=== PATIENT | male | born 1945 | race African-American/Black ===

== ENCOUNTER 2018-01-21 09:00 | Inpatient (IN) | payer BC, MEDICAID ==
[2018-01-31] MEDS ORDERED: FAMOTIDINE 20MG TABLET PO ONE (06:00)
[2018-01-31] MEDS ORDERED: ACETAMINOPHEN 1,000 MG/100 ML BTL IV ONE (06:00)
[2018-01-31] MEDS ORDERED: CELECOXIB 100 MG CAPSULE PO ONE (06:00)
[2018-01-31] MEDS ORDERED: VANCOMYCIN HCL 1,000 MG in DEXTROSE 5 % IN WATER 250 ML IVPB ONE ×2 (06:00)
[2018-01-31] MEDS ORDERED: MECLIZINE 25 MG TABLET PO ONE (06:00)
[2018-01-31] MEDS ORDERED: CEFAZOLIN 2 Gram 2 GM/50 ML BAG IVPB ONE (06:00)
[2018-01-31] MEDS ORDERED: METOCLOPRAMIDE 10 MG TABLET PO ONE (06:00)
[2018-01-31] MEDS ORDERED: TRAMADOL HCL 50 MG TABLET PO PRN ×2 (08:22)
[2018-01-31] MEDS ORDERED: HYDROMORPHONE HCL 2 MG/ML VIAL IM PRN (08:22)
[2018-01-31] MEDS ORDERED: ACETAMINOPHEN 325 MG TAB PO PRN (08:22)
[2018-01-31] MEDS ORDERED: ONDANSETRON HCL IV 4 MG/2 ML VIAL IVP PRN (08:22)
[2018-01-31] MEDS ORDERED: HYDROCODONE/APAP 5/325MG TABLET PO PRN ×2 (08:22)
[2018-01-31] MEDS ORDERED: ZOLPIDEM TARTRATE 5 MG TABLET PO PRN (08:22)
[2018-01-31] MEDS ORDERED: MAGNESIUM HYDROXIDE 30 ML UDC PO PRN (08:22)
[2018-01-31] MEDS ORDERED: BISACODYL 10 MG SUPP RC PRN (08:22)
[2018-01-31] MEDS ORDERED: ACETAMINOPHEN W/ CODEINE 300MG/30MG TABLET PO PRN ×2 (08:22)
[2018-01-31] MEDS ORDERED: NALOXONE 0.4 MG/1 ML VIAL IVP PRN (08:22)
[2018-01-31] MEDS ORDERED: KETOROLAC 30 MG/ML VIAL IVP PRN ×2 (08:22)
[2018-01-31] MEDS ORDERED: PROMETHAZINE HCL 12.5 MG in 0.9 % SODIUM CHLORIDE 100ML 50 ML IVPB PRN (08:22)
[2018-01-31] MEDS ORDERED: METOCLOPRAMIDE HCL 10 MG/2 ML VIAL IVP PRN (08:22)
[2018-01-31] MEDS ORDERED: ACETAMINOPHEN W/ CODEINE 300MG/60MG TABLET PO PRN (08:22)
[2018-01-31] MEDS ORDERED: AL HYDROX/MAG HYDROX 30ML UD PO PRN (08:22)
[2018-01-31] MEDS ORDERED: HYDROCODONE/APAP 7.5/325MG TABLET PO PRN ×2 (08:22)
[2018-01-31] MEDS ORDERED: DIPHENHYDRAMINE HCL 25 MG CAPSULE PO PRN (08:22)
[2018-01-31] MEDS: DOCUSATE SODIUM 100 MG CAPSULE PO SCH ×2 (11:54→21:09)
[2018-01-31] MEDS: FERROUS SULFATE 325 MG TAB PO SCH ×2 (11:54→21:09)
[2018-01-31] MEDS ORDERED: DEXTROSE 5 % AND 0.9 % NACL 1,000 ML IV PRN (13:00)
[2018-01-31] MEDS ORDERED: PNEUM 23-VAL ADULT IM ONE (13:27)
[2018-01-31] MEDS ORDERED: LISINOPRIL 20 MG TABLET PO SCH (14:00)
[2018-01-31] MEDS ORDERED: TRANEXAMIC ACID 1,000 MG/10 ML ML IV ONE ×2 (16:10)
[2018-01-31] MEDS ORDERED: VANCOMYCIN HCL 1 GM VIAL IVPB ONE ×2 (16:10)
[2018-01-31] MEDS ORDERED: BUPIVACAINE LIPOSOME 266MG/20ML VIAL IV ONE (16:10)
[2018-01-31] MEDS ORDERED: BUPIVACAINE 0.5% W/EPI MPF 30 ML VIAL IVP ONE ×2 (16:10)
--- NOTE | 2018-01-31 16:38 | Rehab Evaluation ---
Patient Information - Patient Information Diagnosis: L hip OA Ordered Treatment: PT Evaluate and Treat Status: Initial Evaluation Surgery: Yes (L THR) Date of Surgery: 01/31/18 Past Medical/Surgical Hx: PAST MEDICAL/SURGICAL HISTORY Past Surgical History fluid drained from lungs 2009 CTR TURP PMH - Respiratory Hx Respiratory Disorders Yes Hx Bronchitis Yes Hx Chronic Obstructive Yes: uses inhalers new additions recently. no Pulmonary Disease (COPD) recent hospitalizations Hx Dyspnea Yes Hx Pneumonia Yes Hx Sleep Apnea Yes Hx of CPAP Yes Hx of SOB Yes PMH - Cardiovascular Hx Cardiovascular Disorders Yes Hx Hypertension Yes: controlled with meds Exercise Tolerance Fair Comment: pt has abdominal aortic aneurysm seeing Dr Mcdowell PMH - Neuro Hx Neurological Disorders Yes Hx Dizziness Yes: when looking down Hx Headaches Yes: occassionally Comment: forgetful. Pt fell 2 months ago injury to head neg CT scan PMH - GI Hx Gastrointestinal Disorders Yes Hx Gastroesophageal Reflux Yes Hx Nausea/Vomiting Yes: vomits if he doesnt take Reglan PMH - Hx Genitourinary Disorders Yes Hx Prostate Problems Yes: BPH Hx Urinary Tract Infection Yes: pt had recent UTI PMH - Endocrine Hx Endocrine Disorders No PMH - Musculoskeletal Hx Musculoskeletal Disorders Yes Hx Arthritis Yes: RA and OA PMH - Psych Hx Psychiatric Problems Yes Hx Anxiety Yes Hx Depression Yes PMH - Hematology/Oncology Hx Hematology/Oncology No Disorders Premorbid Status: Detail (The patient was independent with all mobility prior to surgery.) Social History: Detail (The patient lives with spouse in a mobile home with 4 stairs at the enterance and two railings (one within reach). The patient's bathroom is equipped with a walk in shower with a shower bench and a standard toilet with a commode seat with handles. No grab bars are present in the bathroom. The patient has a front wheeled walker.) Precautions: [place], Fall, Other (THR precautions) - Time With Patient Total Time Spent With Patient (Min): 30 Treatment Procedures: Detail (PT evaluation and gait training.) Subjective Information - Subjective Information Per Patient (The patient had complaints of L hip pain level 7 at the highest using 0 to 10 pain scale.) Objective Data - Mental Status Patient Orientation: Oriented x3 - Visual Perception Appears within normal limits for therapeutic activities - ROM Not within normal limits (The patient's L hip is limited within THR precautions. All other LE AROM is WNL) - Strength/Tone Not within normal limits (The patient's L hip strength was not tested secondary to s/p surgery, however the patient's strength was functional. The patient's R LE strength was WFL.) - Bed Mobility Needs Assist (The patient required minimal PA with supine to sit. The patient was independent with scooting.) - Transfers Independent (The patient was independent with sit to and from stand transfer.) - Balance Balance Sitting: Good Balance Standing: Good - Sensation Deficit - Gait Detail (The patient ambulated with front wheeled walker WBAT on the L LE a distance of 25 feet x 1 with supervision for safety. The patient exhibited shortnesss of breath with ambulation.) Therapy Assessment - Therapy Assessment Detail (The patient was independent with transfers and ambulation short distances. The patient required minimal assist with bed mobility. Feel the patient will progress well with mobility.) Patient Education - Patient Education Teaching Topic: Precautions (The patient required maximal verbal cues to recall THR precautions. The patient appropriately followed precautions with mobility.) Response: Reinforcement Needed Teaching Method: Discussion Teaching Recipient: Patient Barriers To Learning: Age Related Problem List - Problem List Physical Therapy Problem List: Detail (1) Decreased L LE strength 2) Assistance with bed mobility 3) Nonambulatory on stairs) Goals - Goals Physical Therapy Goals: 1) The patient will be independent with HEP of THR and exhibit good understanding of THR precautions. 2) The patient will ambulate on stairs using proper technique with supervision for safety. 3) The patient will be independent with bed mobility. 4) The patient will ambulate household distances with appropriate assistive device independently WBAT on the L LE. Prognosis - Prognosis Good Plan - Plan Physical Therapy Plan: PT 1-2 sessions for gait training on levels and stairs and instruction in THR precautions.
[2018-01-31] MEDS: BUSPIRONE 5 MG TABLET PO SCH (17:18)
[2018-01-31] MEDS: PANTOPRAZOLE SODIUM 40 MG TABLET PO SCH (17:18)
[2018-01-31] MEDS: METOCLOPRAMIDE 10 MG TABLET PO SCH (17:18)
[2018-01-31] MEDS: CYCLOBENZAPRINE 10MG TABLET PO SCH (17:19)
[2018-01-31] MEDS ORDERED: ATORVASTATIN 20 MG TABLET PO SCH (17:30)
[2018-01-31] MEDS ORDERED: ATENOLOL 25 MG TABLET PO SCH (17:30)
[2018-01-31] MEDS ORDERED: TAMSULOSIN HCL 0.4 MG CAP.ER.24H PO SCH (17:30)
[2018-01-31] MEDS ORDERED: DULERA INH SCH (18:30)
[2018-01-31] MEDS: HYDROMORPHONE HCL 2 MG/ML VIAL IM PRN ×2 (18:31→23:52)
[2018-01-31] MEDS: PATIENT OWN MED: PROAIR HFA INH PRN (19:36)
--- NOTE | 2018-01-31 20:46 | Operative Note ---
DATE OF SURGERY: 01/31/2018 PREOPERATIVE DIAGNOSIS: Left hip avascular necrosis, stage 3. POSTOPERATIVE DIAGNOSIS: Left hip avascular necrosis, stage 3. OPERATION: Left total hip arthroplasty, cemented. SURGEON: Rizwan Ruiz M.D. ANESTHESIA: Spinal. CONTRACT ENGINEER. COMPLICATIONS: None. BLOOD LOSS: 200 mL. OPERATIVE FINDINGS: Collapse of the superior femoral head. INDICATIONS FOR OPERATION: This is an 72-year-old male, who was seen in consult in the hospital with bilateral hip pain. He had an MRI, which showed avascular necrosis stage 3. He has had persistent pain in both hips with limping and is scheduled for hip replacement. I explained the risks and benefits thoroughly in detail for the diagnosis and procedures including but not limited to; infection , nerve injury, vessel injury, persistent pain, persistent numbness and tingling in his hip, periprosthetic fracture, need for resection arthroplasty should the components become infected or loosened, nerve injury, vessel injury, blood clot, limb length discrepancy, need for need for anticoagulation to prevent blood clots and the risks associated with these medications and all of his questions were answered. Rehab and course were outlined and he agreed to proceed. PROCEDURE: The patient was brought to the O.R. and placed in the right lateral decubitus position and his left hip and lower extremity were prepped and draped in the usual sterile fashion, The left hip was prepped again with ChloraPrep after it was draped. Intraoperative time-out was performed. Next, a posterior approach was marked on the hip. We infiltrated with 0.5% Marcaine with Epinephrine. The skin and subcutaneous tissues were dissected down to the gluteal fascia. The gluteal fascia was split longitudinally and the subgluteal plane was bluntly dissected. The gluteal tendon was partially released and a self-retainer was brought in. I identified the sciatic nerve and carefully protected it at all times. Next, we released the short external rotators and the capsule. We dislocated the femoral head. We resected the femoral head with a saw about 1.5 cm above the lesser trochanter. The femoral head was collapsed superiorly. He had a large crater on the weightbearing portion. Next, I inserted the box osteotome and then started reaming in 1 mm increments up to a size 14. We stopped there. We broached a 13 and calcar planed, then a 14 broach and it fit nicely. Next, attention was turned to the acetabulum. We released the inferior capsule and placed a retractor and retracted the proximal femur out of the way and then a inferior acetabular retractor. We removed the labrum and capsule around the periphery. We started reaming in 1 mm increments in 45 degrees of inclination and 20 degrees of anteversion until we reamed up to a size 53 mm, which had a good peripheral and central fit now. We then trialed a 54 shell and it fit nicely and again in the orientation. We changed gloves, irrigated copiously. We impacted down the real three-hole acetabular component using the helicopter guide, again in 45 degrees of inclination and 20 degrees of anteversion. We drilled the posterior central and superior quadrant screw hole and inserted a 40 mm screw and had good purchase. We placed the trial liner and then inserted the trial stem and re-reduced the hip. The best combination for range of motion and stability was with a high- offset 32 +0 mm femoral head component. This allowed for symmetric leg lengths, flexion to 90 and internal rotation to 80 before the hip dislocated, stability with extension in external rotation, good abductor tensioning. Next, we removed all trial components. We mixed cement. We placed the centrally threaded screw cap and the two other screw caps and the acetabular shell. We impacted down the 35 degree hooded acetabular liner with the medina in the posterior superior quadrant. We placed the cement restrictor in the femoral canal. Irrigated copiously again. Suction catheter and with 3rd generation cement technique, injected the antibiotic cement. We then inserted the femoral stem until the collar was flush with the medial calcar, again in 15 degrees of anteversion and held it there until the cement hardened. We cleaned and dried the trunnion. We impacted down the real femoral head component. We re-reduced the hip. Final range of motion revealed the same. We injected deep to superficial from the short external rotators working out superficially to the periosteum to the gluteal muscle and fascia and subcutaneous with our 0.5% Marcaine with Epinephrine, 2 gm tranexamic acid, and Exparel mixture. We repaired the gluteal fascia split with running #2 Quill suture. We repaired the skin using #2-0 Vicryl securely. A sterile dressing was applied. This will be converted to a BIANCA dressing prior to discharge. The patient tolerated the procedures well. No intraoperative complications. All sponge, needle, and blade counts were correct. Recovery stable, neurovascularly intact. He will be discharged to the Floor. He will be discharged home tomorrow with Home Therapy Nurse. He will follow-up in two weeks. cc: Primary Care DoctorJohn. JOB NUMBER: [id number] MTDD
[2018-01-31] MEDS: VANCOMYCIN HCL 1,000 MG in DEXTROSE 5 % IN WATER 250 ML IVPB SCH ×2 (21:09)
[2018-01-31] MEDS: ACETAMINOPHEN W/ CODEINE 300MG/60MG TABLET PO PRN (21:12)
[2018-01-31] MEDS ORDERED: LATANOPROST OPTH OPTH SCH (22:00)
[2018-02-01] MEDS: ACETAMINOPHEN W/ CODEINE 300MG/60MG TABLET PO PRN (02:09)
[2018-02-01] MEDS: PATIENT OWN MED: PROAIR HFA INH PRN ×3 (02:23→10:41)
[2018-02-01] MEDS: HYDROMORPHONE HCL 2 MG/ML VIAL IM PRN (04:35)
--- NOTE | 2018-02-01 05:01 | RADIOLOGY REPORT ---
EXAM: LEFT HIP HISTORY: POSTOP LEFT HIP ARTHROPLASTY. TECHNIQUE: A single portable frontal view of the left hip was obtained. Comparison: None. FINDINGS: Visible left hip arthroplasty hardware elements appear intact. Unremarkable single view alignment of femoral and acetabular components. The acetabular screw appears to extend approximately 14 mm beyond the medial acetabular cortex, of uncertain significance. Adjacent soft tissue lucencies compatible with recent surgery. No acute fracture seen. IMPRESSION: ABOVE. JOB NUMBER: [id number] MTDD
[2018-02-01] MEDS: PANTOPRAZOLE SODIUM 40 MG TABLET PO SCH (07:39)
[2018-02-01] MEDS: METOCLOPRAMIDE 10 MG TABLET PO SCH (07:39)
[2018-02-01] MEDS: BUSPIRONE 5 MG TABLET PO SCH (07:40)
[2018-02-01] MEDS ORDERED: LISINOPRIL 20 MG TABLET PO SCH (08:00)
[2018-02-01] MEDS ORDERED: BUPROPION HCL 150 MG TAB.SR.12H PO SCH (08:00)
[2018-02-01] MEDS ORDERED: TRIAMTERENE 37.5/HCTZ 25 CAPSULE PO SCH (08:00)
[2018-02-01] MEDS: VANCOMYCIN HCL 1,000 MG in DEXTROSE 5 % IN WATER 250 ML IVPB SCH ×2 (08:07)
[2018-02-01] MEDS: CYCLOBENZAPRINE 10MG TABLET PO SCH (08:11)
--- NOTE | 2018-02-01 08:25 | Rehab Evaluation ---
Patient Information - Patient Information Diagnosis: L hip OA Ordered Treatment: OT Evaluate and Treat Status: Initial Evaluation Surgery: Yes (L THR) Date of Surgery: 01/31/18 Past Medical/Surgical Hx: PAST MEDICAL/SURGICAL HISTORY Past Surgical History fluid drained from lungs 2009 CTR TURP PMH - Respiratory Hx Respiratory Disorders Yes Hx Bronchitis Yes Hx Chronic Obstructive Yes: uses inhalers new additions recently. no Pulmonary Disease (COPD) recent hospitalizations Hx Dyspnea Yes Hx Pneumonia Yes Hx Sleep Apnea Yes Hx of CPAP Yes Hx of SOB Yes PMH - Cardiovascular Hx Cardiovascular Disorders Yes Hx Hypertension Yes: controlled with meds Exercise Tolerance Fair Comment: pt has abdominal aortic aneurysm seeing Dr Mcdowell PMH - Neuro Hx Neurological Disorders Yes Hx Dizziness Yes: when looking down Hx Headaches Yes: occassionally Comment: forgetful. Pt fell 2 months ago injury to head neg CT scan PMH - GI Hx Gastrointestinal Disorders Yes Hx Gastroesophageal Reflux Yes Hx Nausea/Vomiting Yes: vomits if he doesnt take Reglan PMH - Hx Genitourinary Disorders Yes Hx Prostate Problems Yes: BPH Hx Urinary Tract Infection Yes: pt had recent UTI PMH - Endocrine Hx Endocrine Disorders No PMH - Musculoskeletal Hx Musculoskeletal Disorders Yes Hx Arthritis Yes: RA and OA PMH - Psych Hx Psychiatric Problems Yes Hx Anxiety Yes Hx Depression Yes PMH - Hematology/Oncology Hx Hematology/Oncology No Disorders Premorbid Status: Detail (The patient was independent with all mobility prior to surgery. Pt's spouse is responsible for all home mgmt, meal prep and laundry.) Social History: Detail (The patient lives with spouse and 4 children (ages 14, 16 and 18) in a mobile home with 4 stairs at the entrance and two railings. The patient's bathroom is equipped with a walk in shower with a shower bench and a standard toilet with a riser. No grab bars are present in the bathroom. The patient has a front wheeled walker, black leather buffer, sock aid and shoe horn.) Precautions: [place], Fall, Other (THR precautions) Subjective Information - Subjective Information Per Patient, Other (Per spouse) Objective Data - Pain Pain Present: Yes (07/15) - Mental Status Patient Orientation: Oriented x3 - Visual Perception Appears within normal limits for therapeutic activities - ROM Not within normal limits ([place] shoulder motion impaired although this is premorbid per . [place] elbow, hand AROM WNL.) - Strength/Tone Not within normal limits ([place] shoulder strength4/5, davonte elbow and hand strength 4+/5) - Coordination Appears within normal limits for therapeutic activities - Bed Mobility Independent (Ind with supine to sit at EOB with use of hospital bed rails.) - Transfers Independent (Ind with sit to stand from EOB with walker.) - Balance Balance Sitting: Good Balance Standing: Fair - Sensation Intact - Gait Detail (Pt ambulated several steps to chair with 2 wheeled walker and SBA.) - ADL's/IADL's Detail (Pt and educated re: use of black leather buffer, sock aid and long shoe horn for modified LE dressing while maintaining hip precautions. Pt able to doff slipper socks and don boxers, sweatpants and socks with verbal cues, he required assist for slippers due to fatigue and slippers were tight fitting. reports he will have assist as needed at home. Reviewed kitchen and shower safety and modifications, and pt verbalize understanding.) Therapy Assessment - Therapy Assessment Detail (Pt/ educated and demo learning of modified LE dressing techniques and use of adaptive equipment.) Problem List - Problem List Physical Therapy Problem List: Detail (1) Decreased L LE strength 2) Assistance with bed mobility 3) Nonambulatory on stairs) Occupational Therapy Problem List: Detail (No current IP OT problems identified. ) Goals - Goals Physical Therapy Goals: 1) The patient will be independent with HEP of THR and exhibit good understanding of THR precautions. 2) The patient will ambulate on stairs using proper technique with supervision for safety. 3) The patient will be independent with bed mobility. 4) The patient will ambulate household distances with appropriate assistive device independently WBAT on the L LE. Occupational Therapy Goals: No current IP OT goals identified. Prognosis - Prognosis Good Plan - Plan Physical Therapy Plan: PT 1-2 sessions for gait training on levels and stairs and instruction in THR precautions. Occupational Therapy Plan: No further IP OT recommended. Thank you for this referral.
[2018-02-01] MEDS ORDERED: PROPOFOL 10 MG/ML VIAL IV ONE (08:34)
[2018-02-01] MEDS ORDERED: EPHEDRINE SULFATE 50 MG/ML ML IV ONE (08:34)
[2018-02-01] MEDS ORDERED: LIDOCAINE 2% MDV (20MG/ML) 20ML VIAL IV ONE (08:34)
[2018-02-01] MEDS ORDERED: VASOPRESSIN 20 U/ML VIAL IM ONE (08:34)
[2018-02-01] MEDS ORDERED: KETAMINE HCL 100MG/1ML VIAL INJ ONE (08:34)
[2018-02-01] MEDS ORDERED: MIDAZOLAM HCL 2MG/2ML VIAL IV ONE (08:34)
[2018-02-01] MEDS ORDERED: RIVAROXABAN 10 MG TABLET PO SCH (10:00)
[2018-02-01] MEDS ORDERED: STIOLTO RESPIMAT INH SCH (10:00)
[2018-02-01] MEDS ORDERED: CELECOXIB 100 MG CAPSULE PO SCH (10:00)
[2018-02-01] MEDS: DOCUSATE SODIUM 100 MG CAPSULE PO SCH (10:01)
[2018-02-01] MEDS: FERROUS SULFATE 325 MG TAB PO SCH (10:03)
--- NOTE | 2018-02-01 11:20 | Physical Therapy Tx Note ---
Physical Therapy Tx Note - Treatment Note Tolerated: Good Total Time Spent With Patient: 30 Physical Therapy Tx Note: Detail (The patient was in bed when PT arrived. The patient was independent with supine to sit transfer. The patient ambulated with front wheeled walker a distance of 54 feet x 1 WBAT on the L LE independently. The patient ambulated on 3 steps with use of folded walker and railing using proper technique with CG/supervision for safety. The patient completed THR exercises including: ankle pumps, quad sets, gluteal sets, hamstring sets, hip abduction and heel slides. The patient's THR precautions were reviewed. The patient continues to have shortness of breath with all activity and is independent with pursed lip breathing techniques. The patient's was instructed in proper gaurding of the patient on stairs. The patient has met all inpatient PT goals and is discharged from inpatient PT.) Physical Therapy Problem List: Detail (1) Decreased L LE strength 2) Assistance with bed mobility 3) Nonambulatory on stairs) Physical Therapy Goals: GOALS MET: 1) The patient will be independent with HEP of THR and exhibit good understanding of THR precautions. 2) The patient will ambulate on stairs using proper technique with supervision for safety. 3) The patient will be independent with bed mobility. 4) The patient will ambulate household distances with appropriate assistive device independently WBAT on the L LE. Physical Therapy Plan: The patient has met all inpatient PT goals and is discharged from inpatient PT. The patient is to receive Home PT.
== END 2018-02-01 14:00 | disposition home or self-care (01) | DRG 470 ==
LOC: MEDSURG 01-31 08:09
PROVIDERS: ADMIT Orthopaedic Surgery; ATTEND Orthopaedic Surgery
PROC: 0SRB069 Replacement of Left Hip Joint with Oxidized Zirconium on Polyethylene Synthetic Substitute, Cemented, Open Approach (ICD-10-PCS; principal; 2018-01-31 10:00)
DX: M87.852 Other osteonecrosis, left femur (principal); I10 Essential (primary) hypertension; J44.9 Chronic obstructive pulmonary disease, unspecified; E78.00 Pure hypercholesterolemia, unspecified; N40.0 Benign prostatic hyperplasia without lower urinary tract symptoms; H40.9 Unspecified glaucoma; G47.33 Obstructive sleep apnea (adult) (pediatric); I71.4 Abdominal aortic aneurysm, without rupture
CPT/HCPCS: 94640; 94760; 94761; 97110; C1776; J3490; J7042; J7060

== ENCOUNTER 2018-05-26 13:00 | Inpatient (IN) | payer BC, MEDICAID ==
[2018-05-30] MEDS ORDERED: CELECOXIB 100 MG CAPSULE PO ONE (06:00)
[2018-05-30] MEDS ORDERED: ACETAMINOPHEN 1,000 MG/100 ML BTL IV ONE (06:00)
[2018-05-30] MEDS ORDERED: CEFAZOLIN 2 Gram 2 GM/50 ML BAG IVPB ONE (06:00)
[2018-05-30] MEDS ORDERED: MECLIZINE 25 MG TABLET PO ONE (06:00)
[2018-05-30] MEDS ORDERED: VANCOMYCIN HCL 1,000 MG in DEXTROSE 5 % IN WATER 250 ML IVPB ONE ×2 (06:00)
[2018-05-30] MEDS ORDERED: FAMOTIDINE 20MG TABLET PO ONE (06:00)
[2018-05-30 08:14] LABS: ABO GROUP A; ANTIBODY SCREEN NEGATIVE (NEGATIVE); RH TYPE POSITIVE
[2018-05-30] MEDS ORDERED: KETOROLAC 30 MG/ML VIAL IVP PRN ×2 (08:19)
[2018-05-30] MEDS ORDERED: PROMETHAZINE HCL 12.5 MG in 0.9 % SODIUM CHLORIDE 100ML 50 ML IVPB PRN (08:19)
[2018-05-30] MEDS ORDERED: METOCLOPRAMIDE HCL 10 MG/2 ML VIAL IVP PRN (08:19)
[2018-05-30] MEDS ORDERED: BISACODYL 10 MG SUPP RC PRN (08:19)
[2018-05-30] MEDS ORDERED: DIPHENHYDRAMINE HCL 25 MG CAPSULE PO PRN (08:19)
[2018-05-30] MEDS ORDERED: HYDROCODONE/APAP 7.5/325MG TABLET PO PRN (08:19)
[2018-05-30] MEDS ORDERED: TRAMADOL HCL 50 MG TABLET PO PRN ×2 (08:19)
[2018-05-30] MEDS ORDERED: ACETAMINOPHEN W/ CODEINE 300MG/60MG TABLET PO PRN ×2 (08:19)
[2018-05-30] MEDS ORDERED: AL HYDROX/MAG HYDROX 30ML UD PO PRN (08:19)
[2018-05-30] MEDS ORDERED: ZOLPIDEM TARTRATE 5 MG TABLET PO PRN (08:19)
[2018-05-30] MEDS ORDERED: HYDROCODONE/APAP 5/325MG TABLET PO PRN ×2 (08:19)
[2018-05-30] MEDS ORDERED: HYDROMORPHONE HCL 2 MG/ML VIAL IM PRN ×2 (08:19)
[2018-05-30] MEDS ORDERED: NALOXONE 0.4 MG/1 ML VIAL IVP PRN (08:19)
[2018-05-30] MEDS ORDERED: ACETAMINOPHEN 325 MG TAB PO PRN (08:19)
[2018-05-30] MEDS ORDERED: MAGNESIUM HYDROXIDE 30 ML UDC PO PRN (08:19)
[2018-05-30] MEDS ORDERED: ACETAMINOPHEN W/ CODEINE 300MG/30MG TABLET PO PRN ×2 (08:19)
[2018-05-30] MEDS ORDERED: ONDANSETRON HCL IV 4 MG/2 ML VIAL IVP PRN (08:19)
[2018-05-30] MEDS ORDERED: BUPIVACAINE LIPOSOME 266MG/20ML VIAL SQ ONE (09:01)
[2018-05-30] MEDS ORDERED: BUPIVACAINE 0.5% W/EPI MPF 30 ML VIAL SQ ONE (09:01)
[2018-05-30] MEDS ORDERED: DEXTROSE 5 % AND 0.9 % NACL 1,000 ML IV PRN (10:30)
[2018-05-30] MEDS ORDERED: RINGERS SOLUTION,LACTATED 50 ML IV ONE (10:34)
[2018-05-30] MEDS ORDERED: ALBUTEROL HFA 8 GM INHALER INH PRN (11:03)
[2018-05-30] MEDS ORDERED: STIOLTO RESPIMAT INH SCH (11:30)
[2018-05-30] MEDS: BUPROPION HCL 150 MG TAB.SR.12H PO SCH (12:30)
[2018-05-30] MEDS: BUSPIRONE 5 MG TABLET PO SCH ×2 (12:30→21:24)
[2018-05-30] MEDS: PANTOPRAZOLE SODIUM 40 MG TABLET PO SCH ×2 (12:30→21:24)
[2018-05-30] MEDS: CYCLOBENZAPRINE 10MG TABLET PO SCH ×2 (12:30→21:24)
[2018-05-30] MEDS ORDERED: PHENYLEPHRINE HCL 10 MG/ML VIAL IVP ONE (14:00)
[2018-05-30] MEDS ORDERED: KETAMINE HCL 100MG/1ML VIAL INJ ONE (14:00)
[2018-05-30] MEDS ORDERED: EPHEDRINE SULFATE 50 MG/ML ML IV ONE (14:00)
[2018-05-30] MEDS ORDERED: PROPOFOL 10 MG/ML VIAL IV ONE (14:00)
[2018-05-30] MEDS ORDERED: VASOPRESSIN 20 U/ML VIAL IM ONE (14:00)
[2018-05-30] MEDS ORDERED: MIDAZOLAM HCL 2MG/2ML VIAL IV ONE (14:00)
[2018-05-30] MEDS ORDERED: TRANEXAMIC ACID 1,000 MG/10 ML ML IV ONE (14:00)
[2018-05-30] MEDS ORDERED: LIDOCAINE 2% MDV (20MG/ML) 20ML VIAL IV ONE (14:00)
--- NOTE | 2018-05-30 15:26 | Rehab Evaluation ---
Patient Information - Patient Information Diagnosis: R hip OA Ordered Treatment: PT Evaluate and Treat Status: Initial Evaluation Surgery: Yes (L THR) Date of Surgery: 05/30/18 Past Medical/Surgical Hx: PAST MEDICAL/SURGICAL HISTORY Surgery to Affected Area? No Recent Surgery? Past Surgical History LTHA 01-31-18 fluid drained from lungs 2009 CTR TURP PMH - Respiratory Hx Respiratory Disorders Yes Hx Bronchitis Yes Hx Chronic Obstructive Yes: uses inhalers new additions recently. no Pulmonary Disease (COPD) recent hospitalizations Hx Dyspnea Yes Hx Pneumonia Yes Hx Sleep Apnea Yes Hx of CPAP Yes Hx of SOB Yes PMH - Cardiovascular Hx Cardiovascular Disorders Yes Hx Hypertension Yes: controlled with meds Exercise Tolerance Fair Comment: pt has abdominal aortic aneurysm seeing Dr Mcdowell PMH - Neuro Hx Neurological Disorders Yes Hx Dizziness Yes: when looking down Hx Headaches Yes: occassionally Comment: forgetful. Pt fell 6 months ago injury to head neg CT scan PMH - GI Hx Gastrointestinal Disorders Yes Hx Gastroesophageal Reflux Yes Hx Nausea/Vomiting Yes: vomits if he doesnt take Reglan PMH - Hx Genitourinary Disorders Yes Hx Prostate Problems Yes: BPH Hx Urinary Tract Infection Yes: pt had recent UTI PMH - Endocrine Hx Endocrine Disorders No PMH - Musculoskeletal Hx Musculoskeletal Disorders Yes Hx Arthritis Yes: RA and OA PMH - Psych Hx Psychiatric Problems Yes Hx Anxiety Yes Hx Depression Yes PMH - Hematology/Oncology Hx Hematology/Oncology No Disorders Premorbid Status: Detail (Prior to surgery the patient was independent with all mobility.) Social History: Detail (The patient lives with spouse in a mobile home with 4-5 steps at the enterance and two railings. The bathroom equipped with a walk in shower with a shower bench, an elevated toilet (riser seat). No grab bars are present in bathroom. The paitent has a two wheeled walker, 5 point cane, extended shoe horn, [employer] head and sock aide.) Precautions: [place], Fall, Other (R THR precautions) - Time With Patient Total Time Spent With Patient (Min): 30 Treatment Procedures: Detail (Initial evaluation) Subjective Information - Subjective Information Per Patient (The patient had no complaints of pain. The patient did complain of lightheadness with both sitting and standing. The patient was drowsy and required cueing to keep his eyes open when standing.) Objective Data - Mental Status Patient Orientation: Oriented x3 - Visual Perception Appears within normal limits for therapeutic activities - ROM Not within normal limits (The patient's R hip was within THR precautions. All other LE AROM was WNL.) - Strength/Tone Not within normal limits (The patient's R LE strength was not tested s/p surgery. Functionally weakness was present in hip musculature with patient requiring assist to move R LE into hip abduction for supine to sit transfer. The patient's L LE strength was 4+ to 5/5.) - Bed Mobility Needs Assist (The patient required minimal PA with supine to and from sit transfer to lift LE's. The patient was independent with scooting up in bed.) - Transfers Independent (The patient was independent with sit to and from stand tranfer. Supervision for safety with commode transfer plus standby assist of 1 for safety.) - Balance Balance Sitting: Good Balance Standing: Good - Gait Detail (The patient did not ambulate due to lightheadness with standing but did take two to three steps to and from commode to bed transfer with use of 2 wheeled walker.) Therapy Assessment - Therapy Assessment Detail (The patient was lightheaded with standing and required minimal assistance with bed mobility. Feel the patient will progress well once the symptoms of light headedness subside.) Patient Education - Patient Education Teaching Topic: Precautions (THR precautions were reviewed with patient.) Response: Return Demonstration, Reinforcement Needed Teaching Method: Discussion, Handout Teaching Recipient: Patient Barriers To Learning: Age Related Problem List - Problem List Physical Therapy Problem List: Detail (1) Assistance with bed mobility 2) Decreased R LE strength s/p surgery 3) Impaired ambulation s/p surgery) Goals - Goals Physical Therapy Goals: 1) The patient will be independent with all bed mobility and transfers. 2) The patient will be independent with THR HEP and exhibit good understanding and follow THR precautions. 3) The patient will ambulate independently with appropriate assistive device household distances WBAT on the R LE. 4) The patient will ambulate on stairs using proper technique with supervision for safety only. Prognosis - Prognosis Good Plan - Plan Physical Therapy Plan: PT 1-2 sessions for gait training, instruction in HEP, bed mobility and transfer training.
[2018-05-30] MEDS: HYDROCODONE/APAP 7.5/325MG TABLET PO PRN ×2 (16:04→20:21)
[2018-05-30] MEDS: VANCOMYCIN HCL 1,000 MG in DEXTROSE 5 % IN WATER 250 ML IVPB SCH ×2 (21:23)
[2018-05-30] MEDS: FERROUS SULFATE 325 MG TAB PO SCH (21:23)
[2018-05-30] MEDS: DOCUSATE SODIUM 100 MG CAPSULE PO SCH (21:24)
[2018-05-30] MEDS: METOCLOPRAMIDE 10 MG TABLET PO SCH (21:24)
[2018-05-30] MEDS ORDERED: ATENOLOL 50 MG TABLET PO SCH (22:00)
[2018-05-30] MEDS ORDERED: LATANOPROST OPTH OPTH SCH (22:00)
[2018-05-30] MEDS ORDERED: ATORVASTATIN 20 MG TABLET PO SCH (22:00)
[2018-05-30] MEDS ORDERED: BREO (FLUTICASONE/VILANTEROL) 200MCG/25MCG INHALER INH SCH (22:00)
[2018-05-30] MEDS ORDERED: TAMSULOSIN HCL 0.4 MG CAP.ER.24H PO SCH (22:00)
[2018-05-31] MEDS: HYDROCODONE/APAP 7.5/325MG TABLET PO PRN ×2 (00:20→06:47)
--- NOTE | 2018-05-31 04:55 | RADIOLOGY REPORT ---
EXAM: RIGHT HIP HISTORY: POSTOP RIGHT HIP ARTHROPLASTY. TECHNIQUE: A single frontal view of the right hip was obtained. Comparison: None. FINDINGS: Right femoroacetabular arthroplasty hardware appears intact and in expected alignment on this single view. No acute fracture is seen. Soft tissue lucencies adjacent to the right proximal femur are likely expected postoperative findings. IMPRESSION: UNREMARKABLE POSTOPERATIVE APPEARANCE OF THE HIP. JOB NUMBER: [id number] MTDD
[2018-05-31 06:53] LABS: HEMATOCRIT 31.1 % (42.0-52.0); HEMOGLOBIN 10.4 gm/dl (14.0-18.0)
[2018-05-31] MEDS ORDERED: ALBUTEROL SULFATE (0.083%) 2.5 MG/3 ML NEB INH PRN (07:02)
--- NOTE | 2018-05-31 08:17 | Rehab Evaluation ---
Patient Information - Patient Information Diagnosis: R hip OA Ordered Treatment: OT Evaluate and Treat Status: Initial Evaluation Surgery: Yes (Right THR) Date of Surgery: 05/30/18 Past Medical/Surgical Hx: PAST MEDICAL/SURGICAL HISTORY Surgery to Affected Area? No Recent Surgery? Past Surgical History LTHA 01-31-18 fluid drained from lungs 2009 [facility] PMH - Respiratory Hx Respiratory Disorders Yes Hx Bronchitis Yes Hx Chronic Obstructive Yes: uses inhalers new additions recently. no Pulmonary Disease (COPD) recent hospitalizations Hx Dyspnea Yes Hx Pneumonia Yes Hx Sleep Apnea Yes Hx of CPAP Yes Hx of SOB Yes PMH - Cardiovascular Hx Cardiovascular Disorders Yes Hx Hypertension Yes: controlled with meds Exercise Tolerance Fair Comment: pt has abdominal aortic aneurysm seeing Dr Mcdowell PMH - Neuro Hx Neurological Disorders Yes Hx Dizziness Yes: when looking down Hx Headaches Yes: occassionally Comment: forgetful. Pt fell 6 months ago injury to head neg CT scan PMH - GI Hx Gastrointestinal Disorders Yes Hx Gastroesophageal Reflux Yes Hx Nausea/Vomiting Yes: vomits if he doesnt take Reglan PMH - Hx Genitourinary Disorders Yes Hx Prostate Problems Yes: BPH Hx Urinary Tract Infection Yes: pt had recent UTI PMH - Endocrine Hx Endocrine Disorders No PMH - Musculoskeletal Hx Musculoskeletal Disorders Yes Hx Arthritis Yes: RA and OA PMH - Psych Hx Psychiatric Problems Yes Hx Anxiety Yes Hx Depression Yes PMH - Hematology/Oncology Hx Hematology/Oncology No Disorders Premorbid Status: Detail (Prior to surgery the patient was independent with all mobility.) Social History: Detail (The patient lives with spouse in a mobile home with 4-5 steps at the entrance and two railings. The bathroom is equipped with a walk in shower with a shower bench, an elevated toilet (riser seat with handles). No grab bars are present in bathroom. Spouse is responsible for all meal prep, laundry and home mgmt as well as assisting pt with showering and dressing tasks. The patient has a two wheeled walker, 5 point cane, extended shoe horn, digester operator, long sponge and sock aide.) Precautions: [place], Fall, Other (R THR precautions) - Time With Patient Total Time Spent With Patient (Min): 45 Treatment Procedures: Detail (OT eval low complexity) Subjective Information - Subjective Information Per Patient, Other (Spouse present during evaluation) Objective Data - Pain Pain Present: Yes (06/15) - Mental Status Patient Orientation: Oriented x3 - Visual Perception Appears within normal limits for therapeutic activities - ROM Not within normal limits (Davonte UE AROM WNL with exception of left shoulder which was injured recently in a fall.) - Strength/Tone Not within normal limits (Right shoulder flexion 4-/5, left shoulder flexion 3-/ 5, davonte elbows and travel ticketing reviewer 5/5) - Coordination Appears within normal limits for therapeutic activities - Bed Mobility Needs Assist (Min assist for supine to sit) - Transfers Independent (Ind with sit to stand from EOB) - Balance Balance Sitting: Good Balance Standing: Good - Sensation Intact - ADL's/IADL's Detail (Reviewed modified LE dressing techniques using digester operator, sock aid and shoe horn while maintaining total hip precautions. Pt able to doff slipper socks and don pants Indly, he required assist with socks and slippers from , she reports she usually helps him with dressing at home and is comfortable with assisting him after discharge.) Therapy Assessment - Therapy Assessment Detail (Pt and spouse share self care tasks and are Ind with recall of total hip precautions.) Problem List - Problem List Physical Therapy Problem List: Detail (1) Assistance with bed mobility 2) Decreased R LE strength s/p surgery 3) Impaired ambulation s/p surgery) Occupational Therapy Problem List: Detail (No current IP OT problems identified. ) Goals - Goals Physical Therapy Goals: 1) The patient will be independent with all bed mobility and transfers. 2) The patient will be independent with THR HEP and exhibit good understanding and follow THR precautions. 3) The patient will ambulate independently with appropriate assistive device household distances WBAT on the R LE. 4) The patient will ambulate on stairs using proper technique with supervision for safety only. Occupational Therapy Goals: No current IP OT goals identified. Prognosis - Prognosis Good Plan - Plan Physical Therapy Plan: PT 1-2 sessions for gait training, instruction in HEP, bed mobility and transfer training. Occupational Therapy Plan: No further IP OT recommended. Thank you for this referral.
[2018-05-31] MEDS: VANCOMYCIN HCL 1,000 MG in DEXTROSE 5 % IN WATER 250 ML IVPB SCH ×2 (09:34)
[2018-05-31] MEDS ORDERED: LEVOFLOXACIN 500 MG TABLET PO ONE (09:38)
[2018-05-31] MEDS: METOCLOPRAMIDE 10 MG TABLET PO SCH (09:50)
[2018-05-31] MEDS: PANTOPRAZOLE SODIUM 40 MG TABLET PO SCH (09:50)
[2018-05-31] MEDS ORDERED: CELECOXIB 100 MG CAPSULE PO SCH (10:00)
[2018-05-31] MEDS ORDERED: TRIAMTERENE 37.5/HCTZ 25 CAPSULE PO SCH (10:00)
[2018-05-31] MEDS ORDERED: LISINOPRIL 20 MG TABLET PO SCH (10:00)
[2018-05-31] MEDS ORDERED: RIVAROXABAN 10 MG TABLET PO SCH (10:00)
[2018-05-31] MEDS: BUSPIRONE 5 MG TABLET PO SCH (10:53)
[2018-05-31] MEDS: BUPROPION HCL 150 MG TAB.SR.12H PO SCH (10:54)
[2018-05-31] MEDS: DOCUSATE SODIUM 100 MG CAPSULE PO SCH (10:55)
[2018-05-31] MEDS: FERROUS SULFATE 325 MG TAB PO SCH (10:55)
[2018-05-31] MEDS: CYCLOBENZAPRINE 10MG TABLET PO SCH (10:55)
--- NOTE | 2018-05-31 11:35 | Physical Therapy Tx Note ---
Physical Therapy Tx Note - Treatment Note Tolerated: Good Total Time Spent With Patient: 30 Physical Therapy Tx Note: Detail (The patient was sitting on edge of bed when PT arrived. The patient ambulated with front wheeled walker WBAT on L LE independently 75 feet x 1. The patient ambulated on steps using proper technique with supervision for safety only. The patient required minimal PA lifting R LE with sit to supine(patient's was aware of the assist needs with bed mobilty.) The patient completed the following THR HEP: gluteal sets, quad sets, hamstring sets, ankle pumps, heel slides, hip abduction supine. The patient demonstrated proper THR precaution techniques. The patient has met all inpatient PT goals and is to continue with outpatient PT.) Physical Therapy Problem List: Detail (1) Assistance with bed mobility 2) Decreased R LE strength s/p surgery 3) Impaired ambulation s/p surgery) Physical Therapy Goals: 1) The patient will be independent with all bed mobility and transfers. (Goal Met). 2) The patient will be independent with THR HEP and exhibit good understanding and follow THR precautions. (Goal Met). 3) The patient will ambulate independently with appropriate assistive device household distances WBAT on the R LE. (Goal Met). 4) The patient will ambulate on stairs using proper technique with supervision for safety only. (Goal Met) Physical Therapy Plan: The patient was discharged from inpatient PT and is to continue with Home PT.
[2018-06-01] MEDS ORDERED: BREO (FLUTICASONE/VILANTEROL) 200MCG/25MCG INHALER INH SCH (10:00)
--- NOTE | 2018-06-03 08:49 | Operative Note ---
DATE: 05/30/2018. PREOPERATIVE DIAGNOSIS: RIGHT HIP AVASCULAR NECROSIS. POSTOPERATIVE DIAGNOSIS: RIGHT HIP AVASCULAR NECROSIS. PROCEDURE: Right total hip arthroplasty. SURGEON: Rizwan Camacho M.D. ANESTHESIA: Spinal. COMPLICATIONS: None. BLOOD LOSS: 200 mL. OPERATIVE FINDINGS: Avascular necrosis. Some collapse of the femoral head. COMPONENTS PLACED: A total of 2.0 gm of Vancomycin cement. A [employer] synergy cemented size 14 high-offset femoral stem with a 54 mm acetabular shell. One threaded screw cap, two other screw caps, and one acetabular screw. A 35-degree high-crosslinked polyethylene liner, and a 32 + 0 mm femoral head component. INDICATIONS FOR OPERATION: This is a 72-year-old male who is well known to myself. He is status post left hip arthroplasty done for avascular necrosis and is now scheduled for the right. I explained the risks and benefits of surgery in detail for diagnosis and procedures. These include but are not limited to, infection, nerve injury, vessel injury, persistent pain and numbness tingling in his hip, periprosthetic fracture, need for resection arthroplasty, the fact that components can loosen, injury to nerves and vessels , blood clot, limb length discrepancy, and the need for further procedures. All of his questions were answered. The treatment and course were outlined, and he agreed to proceed. PROCEDURE: The patient was brought to the operating room and placed in the beach chair position in preparation for surgery. Spinal anesthesia was induced , and the right hip and lower extremity were prepped and draped in sterile fashion. Prepped with ChloraPrep and draped. Intraoperative time out was performed. Next, a posterior approach was performed, and the hip was marked. It was infiltrated with 0.5% Marcaine with epinephrine and Exparel mixture. The skin and subcutaneous tissue was dissected down to the gluteal fascia. The gluteal fascia was split longitudinally and the subgluteal plane was bluntly dissected. We brought in the self retainer. Identified the sciatic nerve and were careful to protect it at all times. We took short external rotators and tagged them. Next we incised the capsule along the femoral neck proximally and released it at the base of the femoral neck and dislocated the femoral head. We resected the femoral head about 1.5 above the lesser trochanter. It was softened on the superior portion with some early collapse. Next, we inserted the box osteotome and started reaming in 1.0 mm increments working up to a size 14 mm reamer. We stopped there and broached at 12, calcar planed in 15 degrees of anteversion, down to 13, and then down to 14 and stopped there. Next, attention was turned to the acetabulum. We released the capsule anteriorly. I placed the inferior acetabular retractor and then the cobra retractor to retract the proximal femur anteriorly. We had good exposure of the acetabulum. I removed some of the labrum and capsule. Next we started reaming in 1.0 mm increments working up to 45 degrees of inclination and 20 degrees of anteversion until we reamed up to a size 53 and that was sized. We sized again with a 54. We then trialed a size 54 again at 45 degrees of inclination and 20 degrees of anteversion, and it fit nicely. Next, I irrigated copiously and changed gloves. I then impacted down the real three-hole Reflection acetabular component. Tapped it down until it was flush with the medial wall, again in 45 degrees of inclination and 20 degrees of anteversion with our helicopter guide. Next, I drilled a posterior central superior quadrant screw hole, inserted a 40- mm screw, and had excellent purchase. I then placed a trial liner and did a trial reduction. Best combination of range of motion, stability, and limb length was with a high offset 14 stem with a standard 32 + 0 mm femoral head component. This allowed for good abductor tension, flexion to 90 degrees, and internal rotation to 80 degrees before the hip dislocated. There was stability with extension and external rotation and symmetric leg lengths. Next, we removed all of the trial components and copiously irrigated. We placed the two screw caps and the centrally threaded screw cap and impacted down the real polyethylene liner and the acetabulum with the medina in the posterosuperior quadrant and verified it was locked in. Next, we irrigated the femoral canal and placed the cement restricter distally. Injected the cement with third-generation cement technique and removed the suction catheter. I then impacted the cement and then inserted the real femoral stem, again at 15 degrees of anteversion, until the collar was flush with the medial calcar. I held it there until the cement hardened. Once the cement hardened, I cleaned and dried the trunnion and impacted down the real femoral head. I re-reduced the hip and found that range of motion felt the same. Next we irrigated copiously and closed the gluteal fascia with running #2 Quill suture. We irrigated again and closed the skin with #2-0 Vicryl. Sterile dressing was applied. Temporary dressing changed to a BIANCA dressing prior to discharge. JOB NUMBER: [id number] cc: Denzel CONTRERAS
== END 2018-05-31 12:00 | disposition home or self-care (01) | DRG 470 ==
LOC: MEDSURG 05-30 05:48
PROVIDERS: ADMIT Orthopaedic Surgery; ATTEND Orthopaedic Surgery
PROC: 0SR9069 Replacement of Right Hip Joint with Oxidized Zirconium on Polyethylene Synthetic Substitute, Cemented, Open Approach (ICD-10-PCS; principal; 2018-05-30 08:00)
DX: M87.059 Idiopathic aseptic necrosis of unspecified femur (principal); I10 Essential (primary) hypertension; E78.00 Pure hypercholesterolemia, unspecified; N40.0 Benign prostatic hyperplasia without lower urinary tract symptoms; K21.9 Gastro-esophageal reflux disease without esophagitis; H40.9 Unspecified glaucoma; G47.33 Obstructive sleep apnea (adult) (pediatric)
CPT/HCPCS: 85014; 85018; 86850; 86900; 86901; 94640; 94760; 97110; 97530; C1776; J2370; J2405; J3490; J7042; J7060; J7120; J7613